=== PATIENT | female | born 1990 | race Caucasian/White ===

== ENCOUNTER 2024-11-13 17:48 | Emergency (ER) | payer BC ==
[~2024-11-13] VITALS: Ht 167.6 cm; Wt 59.0 kg
[2024-11-13 18:36] VITALS: BP 132/87; TEMP 97.9
[2024-11-13 18:51] VITALS: O2SAT 99
== END 2024-11-13 18:52 | disposition home or self-care (01) ==
LOC: ER 17:56
DX: H57.89 Other specified disorders of eye and adnexa (principal); T55.1X1A Toxic effect of detergents, accidental (unintentional), initial encounter; Y92.89 Other specified places as the place of occurrence of the external cause